=== PATIENT | female | born 1960 | race Caucasian/White ===

== ENCOUNTER 2020-12-29 09:54 | Observation (INO) | payer OTHER, BC ==
[2020-12-29] MEDS ORDERED: morphine SULFATE 4 MG/ML VIAL IVPUSH ONE (10:53)
[2020-12-29] MEDS ORDERED: morphine SULFATE 4 MG/ML VIAL ONE (11:17)
[2020-12-29] MEDS ORDERED: KETOROLAC TROMETHAMINE 30 MG/1 ML VIAL IVPUSH ONE (14:51)
[2020-12-29] MEDS ORDERED: KETOROLAC TROMETHAMINE 30 MG/1 ML VIAL ONE (14:57)
[2020-12-29] MEDS ORDERED: SODIUM CHLORIDE 0.9% 1000 ML INFUS.BAG IV ONE (16:53)
[2020-12-29 17:07] LABS: BASO % 0.4 % (0-2.0); EOS % 0.4 % (0-4.5); HEMATOCRIT 42.5 % (32.4-45.2); HEMOGLOBIN 14.4 GM/dL (10.7-15.3); LYMPH % 18.7 % (8-40); MCH 30.2 pg (25.7-33.7); MCHC 33.8 g/dl (32.0-36.0); MEAN CELL VOLUME 89.3 fl (80-96); MEAN PLT VOLUME 8.5 fl (7.5-11.1); MONO % 5.2 % (3.8-10.2); NEUT % 75.3 % (42.8-82.8); PLATELET COUNT 164 10^3/uL (134-434); RBC 4.76 M/mm3 (3.60-5.2); RDW 12.8 % (11.6-15.6); WHITE BLOOD COUNT 5.9 K/mm3 (4.0-10.0)
[2020-12-29 17:33] LABS: ALBUMIN 3.5 g/dl (3.4-5.0); CALCIUM 9.2 mg/dL (8.5-10.1)
[2020-12-29 17:37] LABS: CREATININE 0.7 mg/dL (0.55-1.3)
[2020-12-29 17:38] LABS: BILIRUBIN,TOTAL 0.5 mg/dL (0.2-1)
[2020-12-29 17:39] LABS: TOT PROT 6.9 g/dl (6.4-8.2)
[2020-12-29] MEDS ORDERED: ACETAMINOPHEN 325 MG TABLET (FP) PO PRN (18:40)
[2020-12-29] MEDS ORDERED: LIDOCAINE 5% TOPICAL PATCH ONE (21:08)
[2020-12-29] MEDS ORDERED: ACETAMINOPHEN 325 MG TABLET (FP) ONE (21:08)
[2020-12-29] MEDS: LIDOCAINE 5% TOPICAL PATCH TP SCH (21:20)
[2020-12-29 21:39] LABS: EPI CELLS 4 /uL (0-25.1); HYALINE CASTS 0 /uL (0-3.1); PH,URINE 6.5 (5.0-8.0); URINE APPEARANCE CLEAR; URINE BACTERIA 40 /uL (0-1359); URINE BILIRUBIN NEGATIVE (NEGATIVE); URINE COLOR YELLOW; URINE GLUCOSE (UA) NEGATIVE (NEGATIVE); URINE KETONE NEGATIVE (NEGATIVE); URINE LEUK ESTERASE NEGATIVE (NEGATIVE); URINE NITRITE NEGATIVE (NEGATIVE); URINE PROTEIN NEGATIVE (NEGATIVE); URINE RBC 67 /uL (0-23.9); URINE UROBILINOGEN 0.2 mg/dL (0.2-1.0); URINE WBC 1 /uL (0-25.8)
[2020-12-29] MEDS ORDERED: LIDOCAINE PATCH REMOVAL MC SCH (22:00)
[2020-12-30 00:50] VITALS: BMI 29.0
[2020-12-30 09:12] LABS: HEMATOCRIT 39.5 % (32.4-45.2); HEMOGLOBIN 13.7 GM/dL (10.7-15.3); MCH 30.8 pg (25.7-33.7); MCHC 34.6 g/dl (32.0-36.0); MEAN CELL VOLUME 88.9 fl (80-96); MEAN PLT VOLUME 8.9 fl (7.5-11.1); PLATELET COUNT 158 10^3/uL (134-434); RBC 4.45 M/mm3 (3.60-5.2); RDW 12.7 % (11.6-15.6); WHITE BLOOD COUNT 4.8 K/mm3 (4.0-10.0)
[2020-12-30 09:35] LABS: BLOOD UREA NITROGEN 11.3 mg/dL (7-18); CALCIUM 8.6 mg/dL (8.5-10.1); MAGNESIUM 2.3 mg/dL (1.8-2.4)
[2020-12-30 09:39] LABS: CREATININE 0.7 mg/dL (0.55-1.3); PHOSPHOROUS 3.4 mg/dL (2.5-4.9)
[2020-12-30] MEDS ORDERED: KETOROLAC TROMETHAMINE 15 MG/ML VIAL IVPUSH ONE (09:45)
[2020-12-30] MEDS: LIDOCAINE 5% TOPICAL PATCH TP SCH (10:32)
[2020-12-30] MEDS ORDERED: BACLOFEN 10 MG TABLET (FP) PO ONE (10:35)
[2020-12-30 17:46] VITALS: BP 126/80; PULSE 80; TEMP 99.1
== END 2020-12-30 17:32 | disposition home or self-care (01) ==
LOC: JER 09:54 → JERBED 16:18 → J5S 21:29
PROVIDERS: ADMIT Internal Medicine; ATTEND Internal Medicine
PROC: 3E0F7GC Introduction of Other Therapeutic Substance into Respiratory Tract, Via Natural or Artificial Opening (ICD-10-PCS; principal; 2020-12-29)
PROC: 3E0333Z Introduction of Anti-inflammatory into Peripheral Vein, Percutaneous Approach (ICD-10-PCS; 2020-12-29)
PROC: 3E033NZ Introduction of Analgesics, Hypnotics, Sedatives into Peripheral Vein, Percutaneous Approach (ICD-10-PCS; 2020-12-29)
PROC: 3E0337Z Introduction of Electrolytic and Water Balance Substance into Peripheral Vein, Percutaneous Approach (ICD-10-PCS; 2020-12-29)
DX: K46.9 Unspecified abdominal hernia without obstruction or gangrene (principal); K90.0 Celiac disease; I77.6 Arteritis, unspecified; V87.8XXA Person injured in other specified noncollision transport accidents involving motor vehicle (traffic), initial encounter; Y93.89 Activity, other specified; Y92.410 Unspecified street and highway as the place of occurrence of the external cause; Y99.0 Civilian activity done for income or pay; M54.5 Low back pain; Z29.9 Encounter for prophylactic measures, unspecified; V98.8XXA Other specified transport accidents, initial encounter
CPT/HCPCS: 36415; 70450-TC; 71045-TC-FY; 72125-TC; 72128-TC; 72131-TC; 72170-TC-FY; 72220-TC-FY; 80048; 80053; 81003; 83735; 84100; 85025; 85027; 87086; 96361; 96374; 96375; 96376; 97116-GP; 97162-GP; 99285-25; C9803; G0378; J0475; U0003; U0005